=== PATIENT | male | born 1955 | race Caucasian/White ===

== ENCOUNTER 2019-04-19 09:55 | Emergency (ER) | payer BC, SELFPAY ==
[2019-04-19 10:00] VITALS: BP 163/99; PULSE 87; RESP 17; TEMP 36.6; O2SAT 98
[2019-04-19 10:01] VITALS: O2SAT 98
--- NOTE | 2019-04-19 11:01 | PC.NURSE ---
JUSTINA JANE AT BEDSIDE FOR PT ASSESSMENT.
--- NOTE | 2019-04-19 11:14 | ED.URI ---
HPI - URI/Sore Throat General Chief Complaint: Upper Respiratory Infection Stated Complaint: head congestion, cough Time Seen by Provider: 04/19/19 10:14 Source: patient Mode of arrival: ambulatory Limitations: no limitations History of Present Illness HPI Narrative: Patient presents with chief complaint of sinus congestion, pressure that has been present for 2 months. Patient states that he finished a course of doxycycline. Patient states that he is noticed that his sinus secretions have gone from green to clear however he still has significant congestion and pressure. He denies any fevers, chills, nausea, vomiting, change in vision or hearing. Patient states he is also been using Flonase without any relief. Patient states that he is also been taking Claritin [id number] without noted improvement. Related Data Allergies Allergy/AdvReac Type Severity Reaction Status Date / Time Penicillins Allergy Mild Unknown Verified 04/19/19 10:04 Review of Systems Review of Systems: Narrative: CONSTITUTIONAL: Denies fever, chills, or sweats. EYES: Denies visual changes, redness, or discharge. ENT: Reports rhinorrhea, congestion, denies sore throat, or otalgia. CARDIOVASCULAR: Denies chest pain, palpitations, or edema. RESPIRATORY: Reports dry cough denies dyspnea. GASTROINTESTINAL: Denies abdominal pain, nausea, vomiting, or diarrhea. GENITOURINARY: Denies dysuria or hematuria. SKIN: Denies rash or itching. MUSCULOSKELETAL: Denies back pain, joint pain, or myalgia. NEUROLOGIC: Denies headache, numbness, dizziness, or weakness. PSYCHIATRIC: Denies anxiety or depression. [facility] Social History Social History Gender identity (if verbalized by the patient): Male Exam Narrative: Exam Narrative: GENERAL: Well-appearing, well-nourished, and in no acute distress. HEAD: Normocephalic, atraumatic. Diffuse sinus tenderness. EYES: PERRLA and EOMI. ENT: Nares very edematous. Nasal secretions are clear. No rhinorrhea or epistaxis. Mucous membranes moist. Oropharynx without tonsillar hypertrophy exudate or other lesions. Bilateral TMs pearly diaz nonbulging. TM fluid levels without erythema. NECK: Supple. No adenopathy or masses. CHEST: Clear to auscultation. No respiratory distress. No wheezes rales or rhonchi HEART: Regular rate and rhythm. No murmur heard. Normal peripheral pulses. EXTREMITIES: Normal range of motion. No edema. SKIN: Warm, dry, no rash. NEURO: No focal deficits. Alert and oriented x3. PSYCH: Normal mood and affect. Course Vital Signs Vital signs: Vital Signs Temperature 97.8 F 04/19/19 10:00 Pulse Rate 87 04/19/19 10:00 Respiratory Rate 17 04/19/19 10:00 Blood Pressure 163/99 H 04/19/19 10:00 Pulse Oximetry 98 04/19/19 10:00 Temperature 97.8 F 04/19/19 10:00 Pulse Rate 87 04/19/19 10:00 Respiratory Rate 17 04/19/19 10:00 Blood Pressure 163/99 H 04/19/19 10:00 Pulse Oximetry 98 04/19/19 10:01 MDM - URI/Sore Throat MDM Narrative Medical decision making narrative: Patient has inflammation of the sinuses but they do not appear to be a bacterial infection at this time. Will attempt to decrease patient's inflammation with Medrol Dosepak in combination with antihistamine and decongestant Zyrtec-D. Patient has been instructed if any signs of infection present such as fever, worsening sinus tenderness, purulent nasal drainage etc. that he needs to follow-up with his primary care and also specialist for antibiotic therapy at that time. Patient has been instructed to follow-up with ear nose throat specialist for further investigation of his sinus inflammation and possible allergic causes. Patient verbalized understanding agreement denies any other questions or concerns. Differential Diagnosis Differential diagnosis: Likely upper respiratory infection, croup, otitis media, sinusitis, viral infection, bronchitis, influenza and pharyngitis Lab Data Labs: Influenza A Screen
[2019-04-19 11:34] VITALS: BP 118/75; PULSE 78; RESP 16; O2SAT 100
== END 2019-04-19 11:35 | disposition home or self-care (01) ==
PROVIDERS: Emergency Provider Emergency Medicine; PCP Internal Medicine
DX: J01.01 Acute recurrent maxillary sinusitis (principal)
CPT/HCPCS: 87804; 99283

== ENCOUNTER 2022-06-21 01:17 | Inpatient (IN) | payer MEDICARE, SELFPAY ==
[2022-06-21] VITALS (24 sets, daily range): BP systolic 145–183; BP diastolic 84–102; PULSE 65–88; RESP 13–20; TEMP 36.4–36.9; O2SAT 96–99; BMI 28.4
--- NOTE | 2022-06-21 | ECHO_ITS ---
Patient Info Name: Humberto Venegas Age: 67 years : 1955 Gender: Male Ht: 74 in Wt: 221 lbs BSA: 2.30 m2 HR: 55 bpm BP: 183 / 90 mmHg Heart Rhythm: Sinus Rhythm Technical Quality: Fair Exam Date: 06/21/2022 12:17 PM Exam Location: [facility] Exam Room: ICU3 Patient Status: Inpatient Admit Date: 06/21/2022 Staff Ordering Physician: Valdemar Abrams MD (aaron/gentry) Operators Teacher: Radha Duong RDCS Attending Provider: Pete Gutierrez MD Referring Physician: Jose Alberto OLEARY; Exam Type: CA echo dop color flow w con Study Info Indications - S/P STENT STEMI Complete two-dimensional, color flow and Doppler transthoracic echocardiogram is performed with contrast to opacify the left ventricle and to improve the deliniation of the left ventricle endocardial borders. Contrast/Agitated Saline Contrast/Ag. Saline: Definity Amount: 3.00 ml Administered By: Radha Duong [facility] Existing IV Access: Yes IV Access Condition: patent with no signs of infiltration Summary 1. Left ventricular chamber dimension is normal. 2. Left ventricular systolic function is normal, estimated at 60-65%. 3. The left ventricular diastolic function is grade I diastolic dysfunction. 4. Right ventricular systolic function is normal. 5. No significant valvular disease. Left Ventricle Left ventricular chamber dimension is normal. Left ventricular systolic function is normal, estimated at 60-65%. There is no increased left ventricular wall thickness. The left ventricular diastolic function is grade I diastolic dysfunction. Right Ventricle Right ventricular chamber dimension is normal. Right ventricular systolic function is normal. Left Atria Left atrial chamber dimension is normal. Right Atria Right atrial chamber dimension is mildly enlarged. Atrial Septum Intact interatrial septum visualized by color flow imaging. Aortic Valve The aortic valve is trileaflet. There is mild aortic valve sclerosis. There is no aortic valve stenosis. There is no aortic valve regurgitation. Pulmonic Valve The pulmonic valve is not well visualized. There is trace pulmonic regurgitation. Mitral Valve The mitral valve has thickened leaflets. There is trace mitral valve regurgitation. Tricuspid Valve There is trace tricuspid valve regurgitation. Pericardium/Pleural There is no pericardial effusion. Inferior Vena Cava Normal inferior vena cava with >50% collapse upon inspiration consistent with normal right atrial pressure, 3 mmHg. Aorta The aortic root size at the sinus of Valsalva is normal. Left Ventricular Outflow Tract Name Value Normal LVOT 2D LVOT Diameter 2.07 cm LVOT Doppler LVOT Peak Gradient 4 mmHg LVOT Mean Gradient 2 mmHg LVOT VTI 22.12 cm LVOT VTI/AV VTI Ratio 0.94 LVOT Stroke Volume 74.13 ml LVOT CO 14.70 l/min LVOT CI 6.38 L/min/m2 Pulmonic Valve Name
--- NOTE | ~2022-06-21 | XR_ITS ---
Portable chest x-ray Comparison: None Clinical History: STEMI Findings: Suggestion of focal opacity at the left lung base. Right lung clear. No pleural effusion o r pneumothorax. Cardiomediastinal silhouette is stable. Bones and soft tissues are unremarkable. Impression: Questionable focal airspace opacity left lung base. Pulmonary nodule is a potential consideration. Fo llow-up CT or repeat chest x-ray recommended to further assess. Reviewed, dictated and finalized at location [facility]. Impression: Questionable focal airspace opacity left lung base. Pulmonary nodule is a poten tial consideration. Follow-up CT or repeat chest x-ray recommended to further a ssess.
--- NOTE | 2022-06-21 01:20 | ECG_ITS ---
Measurements Intervals [place] Rate: 81 P: 39 WV: 231 QRS: 67 QRSD: 93 T: 88 QT: 358 QTc: 418 Interpretive Statements SINUS RHYTHM WITH FIRST DEGREE AV BLOCK INFERIOR ST ELEVATION MYOCARDIAL INJURY- ACUTE POSTERIOR INFARCT, ACUTE ABNORMAL ECG NO PREVIOUS ECG AVAILABLE FOR COMPARISON Electronically Signed On 06-21-2022 6:41:47 CDT by Duong Marquis D.O.
--- NOTE | 2022-06-21 01:32 | ED.GENADULT ---
HPI - General Adult General Chief complaint: Shortness of Breath/Dyspnea Stated complaint: woke up with back pain chest pain Time Seen by Provider: 06/21/22 01:30 History of Present Illness HPI narrative: This is a 67-year-old male with history of high cholesterol and tobacco use presenting ED with back pain. Patient states that he has intermittently over the last week he has been having achy/dull pain between his shoulder blades. When he awoke from sleep tonight it was 10 out 10 intensity, he took 2 Motrin and has decreased to 3/4 in intensity. Patient does not know any exacerbating or alleviating factors. It is not associated with nausea, vomiting, exertion, diaphoresis. Related Data Allergies Allergy/AdvReac Type Severity Reaction Status Date / Time Penicillins Allergy Mild Unknown Verified 04/19/19 10:04 [facility] Past Medical History Medical History High cholesterol Social History Social History Smoking packs per day: 1 Smoking cigarettes per day: 20.0 Years smoked: 40 Smoking pack-years: 40.00 Smoking status: Current every day smoker Tobacco type: cigarettes Smokeless tobacco user: other Second hand tobacco smoke exposure: Yes Gender identity (if verbalized by the patient): Male Exam Narrative: APPEARANCE: Patient appears uncomfortable Head: atraumatic. EYES: EOMI, NOSE: Atraumatic NECK: Trachea midline RESPIRATORY: No increased rate of breathing, CTAB CARDIOVASCULAR: RRR, peripheral edema ABDOMINAL: Non-distended MUSCULOSKELETAl: No obvious deformities NEURO: Alert. Moving 4/4 extremities, cranial nerves 2-12 intact SKIN:: Warm, dry. Normal color PSYCHIATRIC: Normal affect Course Vital Signs Vital signs: Vital Signs Pulse Rate 88 06/21/22 01:25 Respiratory Rate 18 06/21/22 01:25 Blood Pressure 177/102 H 06/21/22 01:25 Pulse Oximetry 98 06/21/22 01:25 Oxygen Delivery Room Air 06/21/22 01:25 Pulse Rate 88 06/21/22 02:02 Respiratory Rate 18 06/21/22 01:25 Blood Pressure 177/102 H 06/21/22 01:25 Pulse Oximetry 98 06/21/22 01:25 Oxygen Delivery Room Air 06/21/22 01:25 Medical Decision Making MDM Narrative Medical decision making narrative: -Presentation: 67-year-old male presenting with pain between shoulder blades. 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 Gutierrez - interventional cardiology -Independent interpretation of studies: Independent EKG interpretation: Rhythm [sinus], Rate [81], [place] -[normal], [place] -[normal], QRS [narrow], QTC [normal], T waves -[negative for concerning inversions], ST Segments - ST segment elevation inferior leads with reciprocal changes Final interpretations: STEMI laboratory studies were pending when the patient is taking the laboratory chief. These will be followed by the primary team. -Interventions: aspirin, heparin -Shared decision making / Disposition: case was discussed with Dr. Gutierrez. Patient will be taken to the laboratory chief. - Vital Signs Vital Signs: Vital Signs Pulse Rate 88 06/21/22 01:25 Respiratory Rate 18 06/21/22 01:25 Blood Pressure 177/102 H 06/21/22 01:25 Pulse Oximetry 98 06/21/22 01:25 Oxygen Delivery Room Air 06/21/22 01:25 Pulse Rate 88 06/21/22 02:02 Respiratory Rate 18 06/21/22 01:25 Blood Pressure 177/102 H 06/21/22 01:25 Pulse Oximetry 98 06/21/22 01:25 Oxygen Delivery Room Air 06/21/22 01:25 Lab Data 06/21/22 01:31 06/21/22 01:31 Labs: Lab Results 06/21/22 Range/Units 01:31 WBC 14.2 H (4.5-10.0) K/mm3 RBC 6.00 (4.6-6.20) M/mm3 Hgb 18.3 H (14.0-18.0) g/dL Hct 53.7 H
[2022-06-21] MEDS: HEPARIN SODIUM 5,000 UNITS/ML VIAL 4000 UNITS IV PUSH (01:35)
[2022-06-21] MEDS: ASPIRIN 81 MG CHEWABLE TABLET 324 MG PO (01:35)
[2022-06-21 01:38] LABS: Basophils Percent Auto 0.3 % (0.2-1.2); Eosinophils Absolute Auto 0.2 K/mm3 (0-0.3); Eosinophils Percent Auto 1.1 % (0-4.4); Hematocrit 53.7 % (42.0-52.0); Hemoglobin 18.3 g/dL (14.0-18.0); Immature Granulocyte Absolute 0.05 K/mm3 (0.00-0.031); Immature Granulocyte Percent A 0.4 % (0-0.5); Lymphocytes Percent Auto 26.8 % (18.3-44.2); Mean Corpuscular HGB Conc 34.1 g/dl (32-36); Mean Corpuscular Hemoglobin 30.5 pg (26-34); Mean Corpuscular Volume 89.5 fl (80-100); Mean Platelet Volume 10.3 fl (7.4-10.4); Monocytes Absolute Auto 1.2 K/mm3 (0.1-0.6); Monocytes Percent Auto 8.5 % (2.6-8.5); Neutrophils Absolute Auto 8.9 K/mm3 (1.3-6.7); Neutrophils Percent Auto 62.9 % (45.5-73.1); Platelet Count Result 208 k/mm3 (150-375); Red Cell Distribution Width 12.9 % (11.5-14.5); White Blood Count 14.2 K/mm3 (4.5-10.0)
[2022-06-21 01:56] LABS: Alanine Aminotransferase 49 U/L (6-50); Albumin Level 4.6 g/dL (3.5-5.1); Alkaline Phosphatase 89 U/L (38-126); Anion Gap 11 mmol/L (8-16); Aspartate Amino Transferase 33 U/L (17-59); Bilirubin,Total 0.6 mg/dL (0.2-1.3); Blood Urea Nitrogen 15 mg/dL (9-20); Calcium 9.1 mg/dL (8.4-10.2); Carbon Dioxide 22 mmol/L (22-30); Chloride 108 mmol/L (98-107); Estimated CRCL calculation 93 ml/min; Estimated Glomerular Filt Rate > 60; Glucose 114 mg/dL (65-110); Potassium 3.8 mmol/L (3.4-5.0); Sodium 141 mmol/L (137-145)
--- NOTE | 2022-06-21 02:15 | PC.NURSE ---
Pt taken to yard labor supervisor at this time.
--- NOTE | 2022-06-21 02:15 | PM.IMHP ---
H&P: HPI History of Present Illness Date/Time: 06/21/22 02:15 Chief Complaint: chest pain Narrative: This 67 patient history with past medical history of tobacco abuse, hyperlipidemiawho presents to hospital with intermittent pain between shoulder blades started week awoke from sleep tonight. His EKG shows ST-elevation inferior leads with diffuse ST depressions. Review of Systems Review of Systems: All systems reviewed & are unremarkable except as noted in HPI and below Constitutional: Constitutional: Denies chills, Denies fatigue, Denies fever(s), Denies headache(s) and Denies snoring Eyes: Eyes: Denies eye discharge and Denies loss of vision ENT: Denies dizziness, Denies headache(s), Denies nasal discharge and Denies sore throat Comments: hearing loss Cardiovascular: Cardiovascular: Reports as per HPI, Denies chest pain, Denies syncope, Denies rapid heart rate, Denies leg edema, Denies dyspnea, Denies dyspnea on exertion, Denies orthopnea and Denies paroxysmal nocturnal dyspnea Respiratory: Respiratory: Denies chest congestion, Denies cough, Denies dyspnea, Denies dyspnea on exertion, Denies snoring and Denies wheezing Gastrointestinal: Gastrointestinal: Denies abdominal pain, Denies diarrhea, Denies nausea and Denies vomiting Genitourinary: Genitourinary: Denies hematuria, Denies dysuria, Denies flank pain and Denies urinary frequency Musculoskeletal: Musculoskeletal: Denies myalgias, Denies arthralgias and Denies joint swelling Comments: upper back pain Neurologic: Denies Abnormal speech present, Denies dizziness, Denies syncope, Denies headache(s), Denies focal weakness and Denies loss of vision Psychiatric: Psychiatric: Denies anxiety and Denies depression Endocrine: Endocrine: Denies cold intolerance, Denies fatigue and Denies heat intolerance Hematologic/Lymphatic: Hematologic/Lymphatic: Denies easy bleeding and Denies easy bruising Allergic/Immunologic: Allergic/Immunologic: Denies urticaria and Denies wheezing PMFSH Past Medical History Medical History High cholesterol Family History Family History (Updated 06/21/22 @ 03:25 by Pete Gutierrez MD) Other Acute myocardial infarction Social History Social History Smoking packs per day: 1 Smoking cigarettes per day: 20.0 Years smoked: 40 Smoking pack-years: 40.00 Smoking status: Current every day smoker Tobacco type: cigarettes Smokeless tobacco user: other Second hand tobacco smoke exposure: Yes Gender identity (if verbalized by the patient): Male Meds Home Medications and Allergies Home Medications Medication Instructions Recorded Confirmed Type cetirizine 5 mg-pseudoephedrine ER 1 tablet PO Q12H #14 tabs 04/19/19 Rx 120 mg tablet,extended release,12hr (Zyrtec-D) methylprednisolone 4 mg tablets in See Rx Instructions PO .COMPLEX 04/19/19 Rx a dose pack #21 ea levofloxacin 500 mg tablet 500 mg PO DAILY #10 tabs 09/15/19 09/15/19 Rx (Levaquin) Allergies Allergy/AdvReac Type Severity Reaction Status Date / Time Penicillins Allergy Mild Unknown Verified 04/19/19 10:04 Vital Signs Vital Signs - 24 hr 06/21/22 01:25 06/21/22 02:02 Pulse Rate 88 88 Respiratory Rate 18 Blood Pressure 177/102 H Pulse Oximetry 98 Oxygen Delivery Room Air Exam Const: General: cooperative, healthy appearing, comfortable, no acute distress, well developed and well nourished Nutritional Appearance: well nourished Orientation/consciousness: patient oriented x3 HENMT: Head: normal to inspection, normocephalic and atraumatic Ears: hearing grossly abnormal bilaterally, external ears normal and hearing grossly impaired Face/Nose/Sinus: Normal external nose present, Normal nares present, normal facial exam and No erythema Face and sinus: normal facial exam and no erythema Mouth: Yes m
--- NOTE | 2022-06-21 02:17 | WPDMODSED ---
Moderate Sedation Note-Pt Data Patient Data Diagnosis: inferior STEMI Present Complaint: pain between shoulder blades Procedure to be performed/Plan: coronary angiogram, left heart catheterization, possible stenting Allergies Allergy/AdvReac Type Severity Reaction Status Date / Time Penicillins Allergy Mild Unknown Verified 04/19/19 10:04 Home Medications Medication Instructions Recorded Confirmed Type cetirizine 5 mg-pseudoephedrine ER 1 tablet PO Q12H #14 tabs 04/19/19 Rx 120 mg tablet,extended release,12hr (Zyrtec-D) methylprednisolone 4 mg tablets in See Rx Instructions PO .COMPLEX 04/19/19 Rx a dose pack #21 ea levofloxacin 500 mg tablet 500 mg PO DAILY #10 tabs 09/15/19 09/15/19 Rx (Levaquin) Sedation/Anesthesia: No previous sedation/anesthesia problems (including family history). [facility] Past Medical History Medical History High cholesterol Social History Social History Smoking packs per day: 1 Smoking cigarettes per day: 20.0 Years smoked: 40 Smoking pack-years: 40.00 Smoking status: Current every day smoker Tobacco type: cigarettes Smokeless tobacco user: other Second hand tobacco smoke exposure: Yes Gender identity (if verbalized by the patient): Male Mod Sed Physical Exam Physical Exam Pre Procedural Exam: Normal: Appearance, Eyes, Ears, Nose, Neck, Throat, Airway, Lungs, Heart Size, Heart Rate, Heart Rhythm, Neuro Exam, Abdomen, Liver, Kidneys, Spleen, Breasts, Genitalia, Extremities and Skin Hours since solid foods: 8 Hours since liquid intake: 8 Mallampati Classification: class 1 Internal Medicine - PN: Obj Da Vital Signs Vital Signs: Vital Signs - 24 hr 06/21/22 01:25 06/21/22 02:02 Pulse Rate 88 88 Respiratory Rate 18 Blood Pressure 177/102 H Pulse Oximetry 98 Oxygen Delivery Room Air Labs 06/21/22 01:31 06/21/22 01:31 Labs: Laboratory Results - last 24 hr 06/21/22 01:31 WBC 14.2 H RBC 6.00 Hgb 18.3 H Hct 53.7 H MCV 89.5 MCH 30.5 MCHC 34.1 RDW 12.9 Plt Count 208 MPV 10.3 Immature Gran % (Auto) 0.4 Neut % (Auto) 62.9 Lymph % (Auto) 26.8 Davidson % (Auto) 8.5 Eos % (Auto) 1.1 Baso % (Auto) 0.3 Lymph # (Auto) 3.80 H Davidson # (Auto) 1.2 H Eos # (Auto) 0.2 Baso # (Auto) 0.0 Abs Immat Gran (auto) 0.05 H Absolute Neuts (auto) 8.9 H Absolute Nucleated RBC 0.0 Nucleated RBC % 0.0 Sodium 141 Potassium 3.8 Chloride 108 H Carbon Dioxide 22 Anion Gap 11 BUN 15 Creatinine 0.80 Estim Creat Clear Calc 93 Estimated GFR > 60 Glucose 114 H Calcium 9.1 Total Bilirubin 0.6 AST 33 ALT 49 Alkaline Phosphatase 89 Total Protein 8.0 Albumin 4.6 ASA Classification/Sedation ASA Classification/Sedation ASA Class: I Emergent: No Risks: Risks, benefits and alternatives explained and patient/family accepted plan for sedation. Patient re-evaluated immediately prior to sedation.
--- NOTE | 2022-06-21 02:18 | WPDCARDPROC ---
Cardiac Cath Procedure Note Date of procedure:: 06/21/22 Performing physician:: Pete Gutierrez MD date of service 06/21/2022 Indication:: inferior STEMI Brief clinical history:: this 67 year old patient with history of tobacco abuse, hypothyroidism who intermittent pain between shoulder blades for 1 week and EKG shows inferior ST elevations consistent a stemi Procedure Procedure performed:: 1-Moderate sedation that started at2:26 a.m. and ended at 3:09 a.m. total duration 45 minutes using 2mg of Versed and 50mcg fentanyl. The registered nurse was abbe watts. 2-Selective left and right coronary angiogram. 3-Left heart catheterization with measurement of LVEDP and measurement of gradient across aortic valve. 4- LV angiogram. 5- Deployment of a drug-eluting stent 5 x 18 at the junction of the mid to distal RCA. 4-Right common femoral arterial angiogram. 5-Deployment of 6 British Angio-Seal. Sedation/Medication given:: Moderate sedation. Access site:: Right common femoral artery. Estimated blood loss:: 10cc Procedure note:: After informed consent patient was brought in to slab off mill tender with the was draped and prepped in usual manner. Moderate sedation was given and the right groin was infiltrated using 1% lidocaine. Five British sheath was obtained using micropuncture needle and the modified Seldinger technique. Selective left coronary angiogram was done using JL4 catheter with the tip of the catheter placed in the left main coronary artery. Selective right coronary angiogram was done using JR4 guide catheter with the tip of the catheter placed to the right coronary artery. after that coronary luge wire was advanced to distal RCA and then balloon angioplasty done using 4 x 10 balloon with inflation done under 14 atmospheres, 2 inflations each for 20 seconds. after that deployed drug-eluting stent livier 5 x 18 under nominal pressure for 25 seconds. after that we went back with a JL4 and took more pictures of the left coronary system. After that 5 British pigtail catheter was advanced across the aortic valve into the left ventricle with measurement of LVEDP and measurement of gradient across aortic valve. LV angiogram was done as well.Right common femoral arterial angiogram was done. Deployed 6 British Angio-Seal. Findings:: 1- left coronary artery is a large artery that divides into large LAD, large circumflex artery. Left main has minimal irregularities. 2- left anterior descending artery is a large artery that runs and wraps around the apex. There is 50% stenosis proximally. large diagonal branch that has minimal irregularities. 3- leftcircumflex artery is a large artery Large artery with minimal irregularities, proximally large OM1 with minimal irregularities. 4- right coronary artery is Very large artery and dominant with minimal irregularities and at the junction of the mid to distal there is an area about 90% stenosis. 5- LVEDP was 8 mm Hg and no gradient across aortic valve. - LV angiogram showed estimated ejection fraction 65%, no significant wall motion abnormalities. 6- opening arterial pressure was 115/43 and closing pressure was 138/74 7- right femoral artery angiogram shows no significant disease in the right common femoral artery. Conclusion:: successful stenting of high-grade stenosis of the junction of the mid to distal RCA. Assessment and Plan Assessment and plan (1) ST elevation [place] (STEMI): Code(s): I21.3 - ST elevation (STEMI) myocardial infarction of unspecified site Status: Acute Plan - continue aspirin and Brilinta. - high-intensity statin - tobacco cessation - echocardiogram - cardiac rehabilitation - screen for diabetes
--- NOTE | 2022-06-21 04:18 | ADMGEN ---
This patient, Humberto Venegas, was admitted to Intensive Care Unit-3 on 06/21/22 at 0332. Patient/family oriented to hospital policies and general routines including ID bracelet, bed and alarms, visiting hours, pain management, procedures, bathroom and other care routines, personal items, smoking policy, room service/diet, and visiting hours. Information on how to activate the Rapid Response Team has been discussed. Patient/Family are encouraged to report perceived risks to care and to ask questions if they do not understand what they are told or what they should do.
[2022-06-21 04:56] LABS: Hemoglobin A1C 5.7 % (<5.7)
[2022-06-21] MEDS: SODIUM CHLORIDE 0.9% IV 1,000 ML 125 ML IV CONT (06:49)
--- NOTE | 2022-06-21 08:55 | WPDCNINT ---
Assessment and Plan Assessment and plan (1) ST elevation HI (STEMI): Code(s): I21.3 - ST elevation (STEMI) myocardial infarction of unspecified site Status: Acute Assessment and Plan: Patient presented with chest pain which has been intermittent for a week, achy and dull between his shoulder blades, he woke up last night (06/20) with 10/10 intensity chest pain denies any nausea, vomiting, diaphoresis or shortness of breath. Code STEMI was activated, patient taken to [facility] where he was found to have a 90% stenosis of his mid to distal RCA, PTCA/PCI with PANDA x1 at the junction of mid to distal RCA. HGB was 8 mmHg, EF estimated at 65% no significant wall motion abnormalities. -continue aspirin, statin, Brilinta, metoprolol -cardiology following the patient -echocardiogram has been ordered (2) Essential hypertension: Code(s): I10 - Essential (primary) hypertension Status: Acute Assessment and Plan: Continue metoprolol (3) Tobacco abuse: Code(s): Z72.0 - Tobacco use Status: Acute Assessment and Plan: Have counseled patient on cessation of smoking, he was wondering if he could get a nicotine patch, will discuss with Cardiology (4) High cholesterol: Code(s): E78.00 - Pure hypercholesterolemia, unspecified Status: Acute Assessment and Plan: Continue high-dose statin Plan DVT prophylaxis: SCDs Stress ulcer prophylaxis: Not indicated Nutrition: Heart healthy diet Code Status: Full code Critical Care Time Spent: 46 minutes Due to a high probability of clinically significant, life threatening deterioration, the patient required my highest level of preparedness to intervene emergently and I personally spent this critical care time directly and personally managing the patient. This critical care time included obtaining a history; examining the patient; pulse oximetry; ordering and review of studies; arranging urgent treatment with development of a management plan; evaluation of patient's response to treatment; frequent reassessment; and discussions with other providers. It was exclusive of separately billable procedures and treating other patients and teaching time. Please see Assessment and Plan section and the rest of the note for further information on patient assessment and treatment This dictation may have been done utilizing a voice recognition system. Attempts have been made to correct errors. However, there may be uncorrected grammatical, spelling, and recognitions errors present. [employer] Consult Note Consult date: 06/21/22 Reason for consult: Chest pain, EKG showed ST-elevation HI status post PANDA x1 and the junction of mid to distal RCA, LVEDP was 8 mmHg, EF estimated at 65% with no significant wall motion abnormalities HPI: Humberto Venegas is a 67 year old male with past medical history of hyperlipidemia, essential hypertension, tobacco use presented to the ED in the early hours of 06/21/2022 with complains of intermittent chest pain over the last week Ms. Has been achy and dull between his shoulder blades, he woke up last night with 10/10 intensity chest pain denies any nausea, vomiting, diaphoresis or shortness of breath. Code STEMI was activated, patient taken to [facility] where he was found to have a 90% stenosis of his mid to distal RCA, PTCA/PCI with PANDA x1 at the junction of mid to distal RCA. HGB was 8 mmHg, EF estimated at 65% no significant wall motion abnormalities. Patient was transferred to the ICU for further managed Patient seen and examined the ICU, denies any chest pain, shortness of breath, abdominal pain, nausea, vomiting. States he is slightly hyperventilating secondary to anxiety. No other complaints overnight. Urine output has been adequate, hemodynamically stable and afebrile Review of Systems Review of Systems: All systems reviewed & are unremarkable except as noted in HPI and below PMFSH Past Medical History Medical Hi
[2022-06-21] MEDS: ASPIRIN 81 MG ENTERIC TABLET PO (09:10)
[2022-06-21] MEDS: ATORVASTATIN 40 MG TABLET 80 MG PO (09:10)
[2022-06-21] MEDS: METOPROLOL SUCCINATE EXT REL 25 MG TABCR PO (09:10)
[2022-06-21] MEDS: lisinopriL 20 MG TABLET PO (09:10)
[2022-06-21] MEDS: TICAGRELOR 90 MG TABLET PO ×2 (09:11→21:53)
--- NOTE | 2022-06-21 10:25 | PM.PNCARD ---
Progress Note: A&P Assessment and Plan (1) ST elevation [place] (STEMI): Code(s): I21.3 - ST elevation (STEMI) myocardial infarction of unspecified site Status: Acute Assessment and Plan: S/p successful stenting of high-grade stenosis of the junction of the mid to distal RCA with PANDA x 1. Doing well since PCI. ASA 81mg once daily indefinitely. Brilinta 90mg BID for at least 1 year. Discussion with the patient today regarding indication for DAPT therapy and the need to be compliant with DAPT therapy and risk of stent thrombosis and complications of stent thrombosis (including ) if he misses any doses of DAPT. High-intensity statin. Beta tejas. Referral to cardiac rehab placed. Will arrange outpatient follow up with Dr. Gutierrez. Transfer out of ICU today. TTE pending. (2) Essential hypertension: Code(s): I10 - Essential (primary) hypertension Status: Acute Assessment and Plan: Uncontrolled. SBP in the 170s-180s today. Will start Lisinopril. (3) Tobacco abuse: Code(s): Z72.0 - Tobacco use Status: Acute Assessment and Plan: Start Nicotine patches (4) High cholesterol: Code(s): E78.00 - Pure hypercholesterolemia, unspecified Status: Acute Assessment and Plan: High-intensity statin. Subjective Date/time seen: 06/21/22 10:25 Interval history: Reason for visit: STEMI HPI: This is a 67-year-old male with history?of tobacco abuse, hyperlipidemia who presents to hospital with intermittent pain between shoulder blades started week awoke from sleep tonight.? His EKG shows ST-elevation inferior leads with diffuse ST depressions. Date of service 06/21: No issues since PCI. Doing well. Hypertensive this AM. Review of Systems Review of Systems: 8 point ROS obtained. Negative, unless stated in HPI. Exam Const: General: comfortable and no acute distress HENMT: Mouth: Yes moist mucous membranes Eyes: General: appearance normal, both eyes and all related structures Sclera: sclerae normal Neck: Neck: supple Resp: Effort & Inspection: normal respiratory effort Auscultation: clear to auscultation bilaterally Cardio: Rate: regular rate Rhythm: regular rhythm Heart sounds: no murmurs GI: GI Palp: Yes Soft to palpation and No Tenderness to palpation present (GI) Skin: General skin exam: normal color Neuro: Speech: normal speech Psych: Mental Status: mental status grossly normal Affect: normal affect Objective Data Vital Signs Vital Signs: Vital Signs - 24 hr 06/21/22 01:25 06/21/22 02:02 06/21/22 03:35 Temperature 36.4 C Pulse Rate 88 88 77 Pulse Rate [Bilateral Pedal (Dorsalis Pedis) Palpation] Respiratory Rate 18 16 Blood Pressure 177/102 H 150/92 H Pulse Oximetry 98 98 Oxygen Delivery Room Air 06/21/22 03:45 06/21/22 04:00 06/21/22 04:15 Temperature Pulse Rate 77 76 78 Pulse Rate [Bilateral Pedal (Dorsalis Pedis) Palpation] Respiratory Rate 18 18 16 Blood Pressure 162/94 H 161/89 H 145/95 H Pulse Oximetry 98 97 97 Oxygen Delivery 06/21/22 04:30 06/21/22 05:00 06/21/22 05:15 Temperature 36.6 C Pulse Rate 73 72 70 Pulse Rate [Bilateral Pedal (Dorsalis Pedis) Palpation] Respiratory Rate 15 18 16 Blood Pressure 149/89 H 153/99 H 150/91 H Pulse Oximetry 96 98 98 Oxygen Delivery 06/21/22 05:30 06/21/22 04:11 06/21/22 03:45 Temperature Pulse Rate 68 75 Pulse Rate [Bilateral Pedal (Dorsalis Pedis) Palpation] Respiratory Rate 16 Blood Pressure 164/99 H Pulse Oximetry 97 Oxygen Delivery Room Air 06/21/22 03:45 06/21/22 04:00 06/21/22 04:30 Temperature Pulse Rate 77 76 73 Pulse Rate [Bilateral Pedal (Dorsalis Pedis) Palpation] 77 76 73 Respiratory Rate 18 18 15 Blood Pressure 162/94 H 161/89 H 149/89 H Pulse Oximetry 98 97 96 Oxygen Delivery 06/21/22 05:00 06/21/22 04:45 06/21/22 07:33 Temperature 36.6 C Pulse Rate 72 77 68 Pulse Rate [
[2022-06-21 10:30] LABS: Cholesterol 232 mg/dL (0-200); HDL Direct 27 mg/dL
[2022-06-21 10:34] LABS: LDL Cholesterol Direct 114 mg/dL
[2022-06-21 10:48] LABS: Triglycerides 576 mg/dL (<150)
[2022-06-21] MEDS: NICOTINE (*PBKC) 21 MG PATCH 1 PATCH TRANSDERM (11:56)
[2022-06-21] MEDS: PERFLUTREN LIPID MICROSPHERES 1.5 ML VIAL DILUTED TO 10 ML TOTAL VOLUME IV PUSH (12:50)
[2022-06-21] MEDS: amLODIPine BESYLATE 5 MG TABLET PO (17:00)
[2022-06-21] MEDS: TEMAZEPAM (*CRX) 15 MG CAPSULE PO (23:46)
[2022-06-22] VITALS (7 sets, daily range): BP systolic 121–168; BP diastolic 91–102; PULSE 65–86; RESP 13–28; TEMP 36.8–36.9; O2SAT 97–99
[2022-06-22 02:58] LABS: Basophils Percent Auto 0.3 % (0.2-1.2); Eosinophils Absolute Auto 0.1 K/mm3 (0-0.3); Eosinophils Percent Auto 1.3 % (0-4.4); Hematocrit 49.4 % (42.0-52.0); Hemoglobin 16.9 g/dL (14.0-18.0); Immature Granulocyte Absolute 0.02 K/mm3 (0.00-0.031); Immature Granulocyte Percent A 0.2 % (0-0.5); Lymphocytes Absolute Auto 2.02 K/mm3 (0.9-3.2); Lymphocytes Percent Auto 21.3 % (18.3-44.2); Mean Corpuscular HGB Conc 34.2 g/dl (32-36); Mean Corpuscular Hemoglobin 30.4 pg (26-34); Mean Corpuscular Volume 88.8 fl (80-100); Mean Platelet Volume 10.4 fl (7.4-10.4); Neutrophils Absolute Auto 6.4 K/mm3 (1.3-6.7); Neutrophils Percent Auto 66.9 % (45.5-73.1); Platelet Count Result 186 k/mm3 (150-375); Red Blood Count 5.56 M/mm3 (4.6-6.20); Red Cell Distribution Width 12.9 % (11.5-14.5); White Blood Count 9.5 K/mm3 (4.5-10.0)
[2022-06-22 03:10] LABS: Anion Gap 9 mmol/L (8-16); Blood Urea Nitrogen 12 mg/dL (9-20); Calcium 8.8 mg/dL (8.4-10.2); Carbon Dioxide 22 mmol/L (22-30); Chloride 105 mmol/L (98-107); Estimated CRCL calculation 105 ml/min; Estimated Glomerular Filt Rate > 60; Glucose 90 mg/dL (65-110); Potassium 4.1 mmol/L (3.4-5.0); Sodium 136 mmol/L (137-145)
[2022-06-22] MEDS: ATORVASTATIN 40 MG TABLET 80 MG PO (09:34)
[2022-06-22] MEDS: ASPIRIN 81 MG ENTERIC TABLET PO (09:34)
[2022-06-22] MEDS: TICAGRELOR 90 MG TABLET PO (09:35)
[2022-06-22] MEDS: lisinopriL 20 MG TABLET PO (09:35)
[2022-06-22] MEDS: METOPROLOL SUCCINATE EXT REL 25 MG TABCR PO (09:35)
[2022-06-22] MEDS: NICOTINE (*PBKC) 21 MG PATCH 1 PATCH TRANSDERM (09:35)
[2022-06-22] MEDS: amLODIPine BESYLATE 5 MG TABLET 10 MG PO (09:36)
--- NOTE | 2022-06-22 11:02 | PM.DS ---
DS: Admitting Diagnosis Discharge Date 06/22/2022 Admitting Diagnosis Chest pain DS: Discharge Diagnosis Discharge Diagnosis (1) ST elevation [place] (STEMI): Code(s): I21.3 - ST elevation (STEMI) myocardial infarction of unspecified site Status: Acute Assessment and Plan: S/p successful stenting of high-grade stenosis of the junction of the mid to distal RCA with PANDA x 1. Doing well since PCI. ASA 81mg once daily indefinitely. Brilinta 90mg BID for at least 1 year. High-intensity statin. Beta tejas. Referral to cardiac rehab placed. Will arrange outpatient follow up with Dr. Gutierrez. TTE showed preserved LVSF OK for discharge home today. (2) Essential hypertension: Code(s): I10 - Essential (primary) hypertension Status: Acute Assessment and Plan: Uncontrolled. SBP remains 160's. Increase amlodipine to 10mg daily. Continue lisinopril 20mg daily. Further adjustments can be made as an outpatient. Monitor BP at home. (3) Tobacco abuse: Code(s): Z72.0 - Tobacco use Status: Acute Assessment and Plan: Start Nicotine patches. Discussed the importance of immediate and ongoing smoking cessation. (4) High cholesterol: Code(s): E78.00 - Pure hypercholesterolemia, unspecified Status: Acute Assessment and Plan: High-intensity statin. DS: Summary Hospital Course Hospital Course: Presented on 06/21/22 with a chief complaint of chest pain. Presenting EKG showing inferior ST elevations consistent with STEMI. 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 He had no periprocedural complications and recovered as expected. On appropriate medical therapy for CAD and tolerating well. He also has uncontrolled hypertension and was started on medical therapy for this. Stable and appropriate for discharge home today. Time Spent with Patient Time attestation: Total time spent providing and/or coordinating discharge services: Exam Const: General: cooperative, healthy appearing, comfortable, no acute distress, well developed and well nourished Nutritional Appearance: well nourished Orientation/consciousness: patient oriented x3 HENMT: Head: normal to inspection, normocephalic and atraumatic Ears: hearing grossly abnormal bilaterally, external ears normal and hearing grossly impaired Face/Nose/Sinus: Normal external nose present, Normal nares present, normal facial exam and No erythema Face and sinus: normal facial exam and no erythema Mouth: Yes moist mucous membranes and No lip abnormal Throat: uvula midline Eyes: General: appearance normal, both eyes and all related structures Eyelids: eyelids normal Sclera: sclerae normal Neck: Neck: normal visual inspection, full ROM and supple Thyroid: thyroid normal Carotids: no bruits Lymphatic: lymphedema not noted Chest: Chest palpation & inspection: normal inspection of the chest and normal palpation of entire chest wall Resp: Effort & Inspection: normal respiratory effort and not labored Auscultation: clear to auscultation bilaterally, no crackles, no rales and no wheezes Cardio: Jugular venous distension: no JVD Rate: regular rate Rhythm: regular rhythm Heart sounds: S1 normal heart sound present, S2 normal heart sound present, no click, no gallops, no murmurs and no rubs Bruits: no carotid bruits GI: Inspection: normal to inspection and non-distended Auscultation: normal bowel sounds Rectal Exam: deferred : General: No CVA tenderness and Yes no CVA tenderness Back/Spine/Pelvis: Back: no CVA tenderness, No CVA tenderness and No erythema Cervical Spine: cervical ROM normal Skin: General skin exam: normal color, no erythema and no pallor Lesions: no lesions Rashes: no rashes Other: R groin arterial insertion site free from bleeding, hematoma, pain. Neuro: General: patient oriented x3 and moves a
== END 2022-06-22 11:50 | disposition home or self-care (01) | DRG 247 ==
LOC: ANHED 01:46 → ANHICU 03:53
PROVIDERS: Internal Medicine; Admitting Provider Internal Medicine Cardiovascular Disease; Emergency Provider Emergency Medicine; Visit Provider Nurse Practitioner
PROC: 4A023N7 Measurement of Cardiac Sampling and Pressure, Left Heart, Percutaneous Approach (ICD-10-PCS; CPT 93452; principal; 2022-06-21 02:00)
PROC: 027034Z Dilation of Coronary Artery, One Artery with Drug-eluting Intraluminal Device, Percutaneous Approach (ICD-10-PCS; 2022-06-21 02:00)
PROC: 027034Z Dilation of Coronary Artery, One Artery with Drug-eluting Intraluminal Device, Percutaneous Approach (ICD-10-PCS; 2022-06-21 02:00)
DX: I21.19 ST elevation (STEMI) myocardial infarction involving other coronary artery of inferior wall (principal); I25.10 Atherosclerotic heart disease of native coronary artery without angina pectoris; I10 Essential (primary) hypertension; E78.00 Pure hypercholesterolemia, unspecified; F17.210 Nicotine dependence, cigarettes, uncomplicated
CPT/HCPCS: 36415; 71045; 80048; 80053; 80061; 83036; 85025; 93005; 93458; 96374; 99291; A9270; C1725; C1760; C1769; C1874; C1887; C1894; C8929; C9606; G0269; J0583; J1644; J2250; J3010; J7030; J7040; Q9957

== ENCOUNTER 2024-02-20 14:23 | Emergency (ER) | payer MEDICARE, SELFPAY ==
[2024-02-20 14:43] VITALS: BP 139/89; PULSE 88; RESP 16; TEMP 36.9; O2SAT 96
--- NOTE | 2024-02-20 15:13 | ED_ITS ---
HPI - Wound/Laceration General Chief Complaint: Wound/Laceration Stated Complaint: Fall Time Seen by Provider: 02/20/24 15:05 Source: patient, RN notes reviewed and old records reviewed Mode of arrival: ambulatory Limitations: no limitations History of Present Illness HPI narrative: patient presents with complaints of laceration to the right leg. He reports that he scraped the leg on a metal part of a recliner at about 1:00 p.m. yesterday. States that he did not become concerned until the site began bleeding again this morning. He has a dressing in place, no active bleeding on arrival. He believes his last tetanus shot was likely more than 10 years ago. Patient is also complaining of sinus congestion and sore throat for approximately 1 month. He denies any fever, chills, sweats. He has taken [id number] medications intermittently for his symptoms. States that symptoms are getting worse. Related Data Allergies Allergy/AdvReac Type Severity Reaction Status Date / Time Penicillins Allergy Mild Unknown Verified 02/20/24 15:12 Review of Systems 2 Review of Systems: All systems reviewed & are unremarkable except as noted in HPI and below Constitutional: Constitutional: Reports no additional constitutional complaints ENT: Reports system reviewed and no additional complaints, except as documented, Reports as per HPI, Reports nasal congestion, Reports nasal discharge, Reports sinus pain, Reports sinus pressure and Reports sore throat Cardiovascular: Cardiovascular: Reports no additional cardiovascular complaints Respiratory: Respiratory: Reports no additional respiratory complaints Gastrointestinal: Gastrointestinal: Reports no additional gastrointestinal complaints Integumentary/Breasts: Skin/Breast: Reports system reviewed and no additional complaints, except as docu and Reports as per HPI [facility] Past Medical History Medical History High cholesterol Family History Family History Father Acute myocardial infarction Hypertension Mother Uterine cancer Sibling Congestive heart failure Social History Social History Smoking packs per day: 1 Smoking cigarettes per day: 20.0 Years smoked: 45 Smoking pack-years: 45.00 Smoking status: Current every day smoker Tobacco type: cigarettes Smokeless tobacco user: other Second hand tobacco smoke exposure: Yes Alcohol intake: current Drinks per week: 4 Substance use: never Substance use type: does not use Lack of Transportation: No Lack of Food: Never True Current Housing: I Have Housing Concerned About Future Housing: No Difficulty Paying Gas/Electric Bills: No Difficulty Paying for Meds: No Currently Unemployed: No Education: Associate Degree Difficulty w/ Childcare or Family Care: No Gender identity (if verbalized by the patient): Male Spiritual care concerns: Yes (P[employer]alism) Comments At the time of my signature, I reviewed and agree with the nursing past medical, surgical, social, and family history. There is no relevant family history pertinent to the patient complaint. Exam 2 Const: General: cooperative, no acute distress, alert and awake O rientation/consciousness: oriented to person, oriented to place and oriented to time HENMT: Head: normal to inspection Ears: TM's normal bilaterally F brenna/Nose/Sinus: sinus tenderness Mouth: Yes moist mucous membranes Throat: posterior oropharynx abnormal erythema Resp: Effort & Inspection: normal respiratory effort and able to speak in complete sentences Auscultation: clear to auscultation bilaterally, no crackles, no rales, no rhonchi and no wheezes Cardio: Palpation: normal PMI Rate: regular rate Rhythm: regular rhythm Heart sounds: S1 normal heart sound present and S2 normal heart sound present Skin: Trauma: laceration right lower leg linear and contaminated Full body images: 1. 3 cm linear laceration, no active bleed Neuro: General: oriented to person, oriented to place and oriented to time Cranial nerves: Yes CN's II-XII intact bilaterally Psych: Appearance: grossly normal Thought process: Normal thought process present Insight: Good insight present (Psych) Judgement: Good judgement present (Psych) Course Course Level of Care: Express Care Visit Vital Signs Vital signs: Vital Signs Temperature 98.4 F 02/20/24 14:43 Pulse Rate 88 02/20/24 14:43 Respiratory Rate 16 02/20/24 14:43 Blood Pressure 139/89 02/20/24 14:43 Pulse Oximetry 96 02/20/24 14:43 Temperature 98.4 F 02/20/24 14:43 Pulse Rate 88 02/20/24 14:43 Respiratory Rate 16 02/20/24 14:43 Blood Pressure 139/89 02/20/24 14:43 Pulse Oximetry 96 01/09/25 14:43 Reviewed MDM - Wound/Laceration MDM Narrative Medical decision making narrative: Tetanus shot updated. Wound is greater than 24 hours old, not amenable to repair. Cleaned and dressed, tetanus updated. Patient has sinusitis. Penicillin allergic. Will cover with doxy, this will cover both sinusitis and the contaminated wound. Discharge instructions reviewed with patient, as well as provided in writing per nursing staff. The instructions also include specific and strict return/GO TO THE ER as well as f/u information. All questions have been answered, and the patient deny any further questions with discharge and discharge plan. Some parts of this dictation were generated by voice recognition software and may contain typographical and/or grammatical inaccuracies. Differential Diagnosis Differential diagnosis: Likely laceration, abrasion, avulsion of skin and other (Sinusitis, pharyngitis) Medical Records Attestation: I reviewed the patient's medical records. Discharge Plan Discharge Clinical Impression: Laceration Sinusitis Qualifiers: Sinusitis location: maxillary Chronicity: acute Recurrence: not specified as recurrent Qualified Code(s): J01.00 - Acute maxillary sinusitis, unspecified Patient Disposition: Home, Self-Care Condition: Stable Instructions: Antibiotic Form, Laceration (ED), Sinusitis (ED) Additional Instructions: take medications as prescribed. Follow with primary care provider. Emergency department for new or worse symptoms Patient Language: Georgian Prescriptions: New doxycycline hyclate 100 mg tablet 100 mg PO BID Qty: 14 0RF No Action cetirizine-pseudoephedrine [Zyrtec-D] 5-120 mg tablet extended release 12 hr 1 tablet PO Q12H Qty: 14 0RF amlodipine [Norvasc] 5 mg Tablet 10 mg PO QAM 30 Days Qty: 60 1RF aspirin 81 mg Tablet,Delayed Release (Dr/Ec) 81 mg PO QAM 30 Days Qty: 30 3RF metoprolol succinate [Toprol XL] 25 mg Tablet Extended Release 24 Hr 25 mg PO QAM 30 Days Qty: 30 3RF Follow-up/Referrals: UNKNOWN,DOCTOR [Primary Care Provider] - 2 Weeks Time of Disposition: 15:31
[2024-02-20] MEDS: TETANUS,DIPHTHERIA,AC PERTUSSIS ADULT (0.5 ML) BOOSTRIX IM (15:20)
== END 2024-02-20 15:38 | disposition home or self-care (01) ==
PROVIDERS: Emergency Provider Nurse Practitioner Family
DX: S81.811A Laceration without foreign body, right lower leg, initial encounter (principal); W22.8XXA Striking against or struck by other objects, initial encounter; J01.00 Acute maxillary sinusitis, unspecified; Z23 Encounter for immunization; F17.210 Nicotine dependence, cigarettes, uncomplicated; E78.00 Pure hypercholesterolemia, unspecified
CPT/HCPCS: 90471; 90715; 99213; G0463

== ENCOUNTER 2024-06-09 08:03 | Outpatient (CLI) | payer MEDICARE, SELFPAY ==
--- NOTE | ~2024-06-09 | CT_ITS ---
CT scan of the Neck Technique: 2.5 mm axial scans were obtained through the neck after intravenous administration of 75 c c Omnipaque 350. Coronal and sagittal reconstructions of the neck were obtained. Dose reduction techn ique was used on this scan by utilizing automated exposure control and iterative reconstruction techn ique. The dose-length product (DLP) was 466.08 mGy-cm. Clinical History: Neck mass Findings: Suspected ill-defined/irregular right palatine tonsillar mass measuring up to approximately 2.5 cm in diameter, mild deviations is encroachment on the airway. There is extensive right cervical lymphaden opathy, extending from level 2 inferiorly to the supraclavicular region. Node along the anteromedial margin of the sternocleidal mastoid muscle measures 2.9 x 2.4 cm. Additional node just deep to the po sterior aspect of the sternocleidomastoid muscle measures 2.7 x 2.0 cm. Additional enlarged right cer vical lymph nodes are present. No definite left sided lymphadenopathy. The thyroid gland appears normal. Images of the lung apices reveal no abnormalities. Impression: Probable irregular/ill-defined mass at the right palatine tonsil or possibly right base of tongue, me asuring up to approximately 2.5 cm in diameter. This is suspicious for malignancy. Extensive right cervical lymphadenopathy, suspicious for metastatic disease. Please see details above . Further evaluation with direct inspection and tissue sampling is recommended. Consider PET CT and/or MR imaging of the neck for further imaging evaluation. Reviewed, dictated and finalized at [facility]. Impression: Probable irregular/ill-defined mass at the right palatine tonsil or possibly ri ght base of tongue, measuring up to approximately 2.5 cm in diameter. This is s uspicious for malignancy. Extensive right cervical lymphadenopathy, suspicious for metastatic disease. Pl ease see details above. Further evaluation with direct inspection and tissue sampling is recommended. C onsider PET CT and/or MR imaging of the neck for further imaging evaluation.
[2024-06-09 08:24] LABS: Estimated Glomerular Filt Rate > 60
== END 2024-06-09 08:04 | disposition home or self-care (01) ==
LOC: MICIMG 08:04
PROVIDERS: PCP Nurse Practitioner Family; Visit Provider Nurse Practitioner Family
DX: R59.1 Generalized enlarged lymph nodes (principal)
CPT/HCPCS: 70491; Q9967